=== PATIENT | female | born 1985 | race Caucasian/White ===

== ENCOUNTER 2020-01-02 02:58 | Inpatient (IN) | payer OTHER ==
[2020-01-02] MEDS: Lactated Ringers 1,000 ML IV SCH ×2 (03:14→04:24)
[2020-01-02] MEDS ORDERED: Sodium Chloride 0.9% 10 ML Syringe FLUSH PRN (03:20)
[2020-01-02] MEDS ORDERED: Nalbuphine 10 MG/1 ML Vial IVPUSH PRN (03:20)
[2020-01-02] MEDS ORDERED: Oxytocin/Lactated Ringers 10 UNIT/1,000 ML BAG IV SCH (03:30)
[2020-01-02] MEDS ORDERED: fentaNYL 100 MCG/2 ML SDV EPIDUR PRN (03:42)
[2020-01-02] MEDS ORDERED: diphenhydrAMINE 50 MG/ML SDV IVPUSH PRN (03:42)
[2020-01-02] MEDS ORDERED: Bupivacaine/fentaNYL/NS 100 ML Bag EPIDUR PRN (03:42)
[2020-01-02] MEDS ORDERED: ePHEDrine 50 MG/ML SDV IVPUSH PRN (03:42)
[2020-01-02] MEDS ORDERED: Ondansetron 4 MG/2 ML SDV ONE (04:33)
[2020-01-02] MEDS ORDERED: Ondansetron 4 MG/2 ML SDV IVPUSH ONE (04:38)
--- NOTE | 2020-01-02 05:58 | PCM.LDHP ---
L&D History of Present Illness - General Date of Service: 01/02/20 Admit Problem/Dx: Patient Status Order with Admit Dx/Problem 01/02/20 03:20 Patient Status [ADT] Routine Admission Diagnosis/Problem Admission Diagnosis/Problem Source of Information: Patient History Limitations: Reports: No Limitations - History of Present Illness Introduction:: 34-year-old -0-0-2 [place] 01/09/2020 presented to labor and delivery estimated gestational age of 39 weeks 0 days in active labor 7 cm dilated. Epidural was obtained. Patient progressed rapidly to deliver. The delivery record 820 06/2019 blood type O+ antibody screen negative on 06/18/2019 hemoglobin 14.0 hematocrit 41.0 platelets under 10 52,000. On 10/05/2019 hemoglobin 12.3 g. Are OB glucose screen 97. Antibody screen negative. Rubella immune. Serology nonreactive. Chlamydia and GC probe negative. GBS negative Location, : Reports: Abdomen, Lower back Quality: Reports: Ache, Pressure Severity: Moderate Pain Score: 8 Improves with: Reports: None Worsens with: Reports: None Associated Symptoms: Reports: N - Related Data Allergies/Adverse Reactions: Allergies Allergy/AdvReac Type Severity Reaction Status Date / Time Sulfa (Sulfonamide Allergy Hives Verified 01/02/20 03:50 Antibiotics) Home Medications: Home Meds Vits #93/Iron Fum/FA [ Formula Tablet] 1 tab PO DAILY 01/02/20 [History] Past Medical History [employer] History: Reports: Psychiatric History: Reports: Anxiety, Depression, PTSD Social & Family History - Tobacco Use Tobacco Use Status *Q: Former Tobacco User Used Tobacco, but Quit: Yes Month/Year Tobacco Last Used: 12/2017 - Caffeine Use Caffeine Use: Reports: None - Recreational Drug Use Recreational Drug Use: No H&P Review of Systems - Review of Systems: Review Of Systems: See Below General: Reports: No Symptoms HEENT: Reports: No Symptoms Pulmonary: Reports: No Symptoms Cardiovascular: Reports: No Symptoms Gastrointestinal: Reports: No Symptoms Genitourinary: Reports: No Symptoms Musculoskeletal: Reports: No Symptoms Skin: Reports: No Symptoms Psychiatric: Reports: No Symptoms Neurological: Reports: No Symptoms Hematologic/Lymphatic: Reports: No Symptoms Immunologic: Reports: No Symptoms L&D Exam - Exam Exam: See Below - Vital Signs Vital Signs: Last Vital Signs Temp 97.5 F 01/02/20 03:20 Pulse 94 01/02/20 03:20 Resp 20 01/02/20 03:20 BP 129/74 01/02/20 03:20 Pulse Ox 100 01/02/20 03:20 Weight: 187 lb 14.4 oz - OB Specific Fundal Height In cm: 39 Contraction Duration (sec): 60 Contraction Frequency (min): 4 Contraction Intensity: Moderate Movement: Active Heart Tones: Present Heart Tones per Min: 140 Heart Rate (FHR) Variability: Moderate (6-25 bmp) Presentation: Left Occiput Anterior (FREDI) - Lyle Score Lyle Score Cervix Position: Midposition Lyle Score Consistency: Soft Lyle Score Effacement: >80% Lyle Score Dilation: > 5 cm Lyle Score Infant's Station: -2 Lyle Score Total: 10 - Exam General: Alert, Oriented HEENT: Conjunctiva Clear, Mucosa Moist & [place] Neck: Supple, Trachea Midline Lungs: Clear to Auscultation, Normal Respiratory Effort Cardiovascular: Regular Rate, Regular Rhythm GI/Abdominal Exam: Normal Bowel Sounds, Soft, Non-Tender Genitourinary: Normal external exam Extremities: Normal Inspection, Non-Tender, No Pedal Edema, Normal Capillary Refill Skin: Warm, Dry, Intact Psychiatric: Alert, Normal Affect, Normal Mood - Patient Data Lab Results Last 24 hrs: Laboratory Results - last 24 hr 01/02/20 01/02/20 01/02/20 Range/Units 03:20 03:20 03:25 WBC 16.22 H (3.98-10.04) K/mm3 RBC 4.22 (3.98-5.22) M/mm3 Hgb 12.5 (11.2-15.7) gm/dl Hct 38.3 (34.1-44.9) % MCV 90.8 (79.4-94.8) fl MCH 29.6 (25.6-32.2) pg MCHC 32.6 (32.2-35.5) g/dl RDW Std Deviation 44.1 (36.4-46.3) fL Plt Count 287 (182-369) K/mm3 MPV 9.1 L (9.4-12.3) fl Neut % (Auto) 79.8 H (34.0-71.1) % Lymph % (Auto) 13.4 L (19.3-51.7) % [place] % (Auto) 5.2 (4.7-12.5) % Eos % (Auto) 1.1 (0.7-5.8) Baso % (Auto) 0.1 (0.1-1.2) % Neut # (Auto) 12.93 H (1.56-6.13) K/mm3 Lymph # (Auto) 2.18 (1.18-3.74) K/mm3 [place] # (Auto) 0.85 H (0.24-0.36) K/mm3 Eos # (Auto) 0.18 (0.04-0.36) K/mm3 Baso # (Auto) 0.01 (0.01-0.08) K/mm3 SARS-CoV-2 RNA (CRISS) Negative (NEGATIVE) Blood Type O POSITIVE Gel Antibody Screen Negative Result Diagrams: 01/02/20 03:20 - Problem List (1) 39 weeks gestation of SNOMED Code(s): 34058701 ICD Code: Z3A.39 - 39 WEEKS GESTATION OF Status: Acute Current Visit: Yes Problem List Initiated/Reviewed/Updated: No Orders Last 24hrs: Active Orders 24 hr Category Date Time Status Patient Status [ADT] Routine ADT 01/02/20 03:20 Active Activity as Tolerated [RC] PFP Care 01/02/20 03:20 Active Communication Order [RC] ASDIRECTED Care 01/02/20 03:20 Active Heart Tones [RC] ASDIRECTED Care 01/02/20 03:20 Active Non Stress Test [RC] PER UNIT ROUTINE Care 01/02/20 03:20 Active Notify Provider [RC] ASDIRECTED Care 01/02/20 03:42 Active Notify Provider [RC] PFP Care 01/02/20 03:20 Active Notify Provider [RC] PRN Care 01/02/20 03:20 Active Peripheral IV Care [RC] . DIRECTED Care 01/02/20 03:20 Active Vital Signs [RC] PER UNIT ROUTINE Care 01/02/20 03:20 Active Regular Diet [DIET] Diet 01/02/20 Breakfast Active CORONAVIRUS COVID-19 CRISS [MOLEC] Stat Lab 01/02/20 03:25 Received RAPID PLASMA REAGIN,RPR [CHEM] Routine Lab 01/02/20 03:20 Received Bupivacaine/fentaNYL/NS [fentaNYL/Bupivacaine/NS 2 MCG- Med 01/02/20 03:42 Active 0.125% 100 ML] 100 ml EPIDUR ASDIRECTED PRN Lactated Ringers [Ringers, Lactated] 1,000 ml Med 01/02/20 03:30 Active IV ASDIRECTED Nalbuphine [Nubain] Med 01/02/20 03:20 Active 10 mg IVPUSH Q2H PRN Oxytocin/Lactated Ringers [Pitocin in LR 10 Units/1,000 Med 01/02/20 03:30 Active ML] 10 unit in 1,000 ml IV .CONTINUOUS Sodium Chloride 0.9% [Saline Flush] Med 01/02/20 03:20 Active 10 ml FLUSH ASDIRECTED PRN diphenhydrAMINE [Benadryl] Med 01/02/20 03:42 Active 25 mg IVPUSH Q6H PRN ePHEDrine [ePHEDrine sulfate] Med 01/02/20 03:42 Active 5 mg IVPUSH ASDIRECTED PRN fentaNYL [Sublimaze] Med 01/02/20 03:42 Active 100 mcg EPIDUR Q3H PRN Electronic Heart Tones Ext w TOCO [WOMSER] Oth 01/02/20 03:20 Ordered Routine Electronic Heart Tones Internal [WOMSER] Per Unit Oth 01/02/20 03:20 Ordered Routine Peripheral IV Insertion Adult [OM.PC] Routine Oth 01/02/20 03:20 Ordered Resuscitation Status Routine Resus Stat 01/02/20 03:20 Ordered Medication Orders Diphenhydramine HCl (Benadryl) 25 mg IVPUSH Q6H PRN PRN Reason: pruritis Ephedrine Sulfate (Ephedrine Sulfate) 5 mg IVPUSH ASDIRECTED PRN PRN Reason: Hypotension Fentanyl (Sublimaze) 100 mcg EPIDUR Q3H PRN PRN Reason: Pain Last Admin: 01/02/20 04:29 Dose: 100 mcg Documented by: MONA Fentanyl/Bupivacaine HCl (Fentanyl/Bupivacaine/Ns 2 Mcg-0.125% 100 Ml) 100 ml EPIDUR ASDIRECTED PRN PRN Reason: Pain Last Admin: 01/02/20 04:30 Dose: 100 ml Documented by: MONA Oxytocin/Lactated Ringer's (Pitocin In Lr 10 Units/1,000 Ml) 10 unit in 1,000 mls @ 500 mls/hr IV .CONTINUOUS [place] Last Admin: 01/02/20 04:30 Dose: 500 mls/hr Documented by: MONA Lactated Ringer's (Ringers, Lactated) 1,000 mls @ 100 mls/hr IV ASDIRECTED [place] Last Admin: 01/02/20 04:24 Dose: 100 mls/hr Documented by: Infusion: 01/02/20 04:24 Dose: 100 mls/hr Documented by: Admin: 01/02/20 03:14 Dose: 100 mls/hr Documented by: MONA Nalbuphine HCl (Nubain) 10 mg IVPUSH Q2H PRN PRN Reason: Pain Sodium Chloride (Saline Flush) 10 ml FLUSH ASDIRECTED PRN PRN Reason: Keep Vein Open Assessment/Plan Comment:: Plan delivery if possible epidural plan delivery
--- NOTE | 2020-01-02 06:04 | PCM.DEL ---
L & D Note - General Info Date of Service: 01/02/20 Mother's Due Date: 01/09/20 - Delivery Note Labor: Spontaneous Delivery Outcome: Livebirth (Female live born at 0507 hrs. liveborn Apgars 7/7 weight 3700 g / 8 pounds 3 ounces. FREDI no nuchal cord) Delivery Method: Spontaneous Vaginal Delivery-Single Infant Delivery Mode: Spontaneous Presentation: Left Occiput Anterior (FREDI) Nuchal Cord: None Prep: Povidone-Iodine (Betadine Anesthesia Type: Epidural Amniotic Fluid Description: Clear Episiotomy Type: None Laceration: 2nd Degree Suture type: Other (Monocryl) Suture size: 3-0 Placenta: Intact, Spontaneous (0509 marginal cord insertion) Cord: 3 Vessels Estimated Blood Loss: 250 Resuscitation Needed: Yes [place]: Suctioned, Bulb Syringe, Cathether, Stimulated, Warmed, [place] Used, Warmer Used Provider: Jose Good (Dr Lee called) Score 1 min: 7 Score 5 min: 7 - General Info Date of Service: 01/02/20 Functional Status: Reports: Pain Controlled - Review of Systems General: Reports: No Symptoms HEENT: Reports: No Symptoms Pulmonary: Reports: No Symptoms Cardiovascular: Reports: No Symptoms Gastrointestinal: Reports: No Symptoms Genitourinary: Reports: No Symptoms Musculoskeletal: Reports: No Symptoms Skin: Reports: No Symptoms Neurological: Reports: No Symptoms Psychiatric: Reports: No Symptoms - Patient Data Vitals - Most Recent: Last Vital Signs Temp 97.5 F 01/02/20 03:20 Pulse 94 01/02/20 03:20 Resp 20 01/02/20 03:20 BP 129/74 01/02/20 03:20 Pulse Ox 100 01/02/20 03:20 Weight - Most Recent: 187 lb 14.4 oz Lab Results Last 24 Hours: Laboratory Results - last 24 hr 01/02/20 01/02/20 01/02/20 Range/Units 03:20 03:20 03:25 WBC 16.22 H (3.98-10.04) K/mm3 RBC 4.22 (3.98-5.22) M/mm3 Hgb 12.5 (11.2-15.7) gm/dl Hct 38.3 (34.1-44.9) % MCV 90.8 (79.4-94.8) fl MCH 29.6 (25.6-32.2) pg MCHC 32.6 (32.2-35.5) g/dl RDW Std Deviation 44.1 (36.4-46.3) fL Plt Count 287 (182-369) K/mm3 MPV 9.1 L (9.4-12.3) fl Neut % (Auto) 79.8 H (34.0-71.1) % Lymph % (Auto) 13.4 L (19.3-51.7) % [place] % (Auto) 5.2 (4.7-12.5) % Eos % (Auto) 1.1 (0.7-5.8) Baso % (Auto) 0.1 (0.1-1.2) % Neut # (Auto) 12.93 H (1.56-6.13) K/mm3 Lymph # (Auto) 2.18 (1.18-3.74) K/mm3 [place] # (Auto) 0.85 H (0.24-0.36) K/mm3 Eos # (Auto) 0.18 (0.04-0.36) K/mm3 Baso # (Auto) 0.01 (0.01-0.08) K/mm3 SARS-CoV-2 RNA (CRISS) Negative (NEGATIVE) Blood Type O POSITIVE Gel Antibody Screen Negative Med Orders - Current: Current Medications Diphenhydramine HCl (Benadryl) 25 mg IVPUSH Q6H PRN PRN Reason: pruritis Ephedrine Sulfate (Ephedrine Sulfate) 5 mg IVPUSH ASDIRECTED PRN PRN Reason: Hypotension Fentanyl (Sublimaze) 100 mcg EPIDUR Q3H PRN PRN Reason: Pain Last Admin: 01/02/20 04:29 Dose: 100 mcg Documented by: Fentanyl/Bupivacaine HCl (Fentanyl/Bupivacaine/Ns 2 Mcg-0.125% 100 Ml) 100 ml EPIDUR ASDIRECTED PRN PRN Reason: Pain Last Admin: 01/02/20 04:30 Dose: 100 ml Documented by: Oxytocin/Lactated Ringer's (Pitocin In Lr 10 Units/1,000 Ml) 10 unit in 1,000 mls @ 500 mls/hr IV .CONTINUOUS [place] Last Admin: 01/02/20 04:30 Dose: 500 mls/hr Documented by: Lactated Ringer's (Ringers, Lactated) 1,000 mls @ 100 mls/hr IV ASDIRECTED [place] Last Admin: 01/02/20 04:24 Dose: 100 mls/hr Documented by: Nalbuphine HCl (Nubain) 10 mg IVPUSH Q2H PRN PRN Reason: Pain Sodium Chloride (Saline Flush) 10 ml FLUSH ASDIRECTED PRN PRN Reason: Keep Vein Open Discontinued Medications Ondansetron HCl (Zofran) Confirm Administered Dose 4 mg .ROUTE .STK-MED ONE Stop: 01/02/20 04:34 Last Admin: 01/02/20 04:37 Dose: 4 mg Documented by: Ondansetron HCl (Zofran) 4 mg IVPUSH ONETIME ONE Stop: 01/02/20 04:39 - Exam General: Alert, Oriented HEENT: Pupils Equal, Mucous Membr. Moist/[place] Neck: Supple Lungs: Clear to Auscultation, Normal Respiratory Effort Cardiovascular: Regular Rate, Regular Rhythm (Female) Exam: Normal External Exam Extremities: Normal Inspection, Non-Tender, No Pedal Edema, Normal Capillary Refill, Pedal Edema Skin: Warm, Dry, Intact Psy/Mental Status: Alert, Normal Affect, Normal Mood - Problem List & Annotations (1) 39 weeks gestation of SNOMED Code(s): 70601121 Code(s): Z3A.39 - 39 WEEKS GESTATION OF Status: Acute Current Visit: Yes (2) Second degree perineal laceration during delivery SNOMED Code(s): 7635437 Code(s): O70.1 - SECOND DEGREE PERINEAL LACERATION DURING DELIVERY Status: Acute Current Visit: Yes - Problem List Review Problem List Initiated/Reviewed/Updated: No - My Orders Last 24 Hours: My Active Orders 01/02/20 03:20 Patient Status [ADT] Routine Activity as Tolerated [RC] PFP Communication Order [RC] ASDIRECTED Heart Tones [RC] ASDIRECTED Non Stress Test [RC] PER UNIT ROUTINE Notify Provider [RC] PFP Notify Provider [RC] PRN Peripheral IV Care [RC] . DIRECTED Vital Signs [RC] PER UNIT ROUTINE RAPID PLASMA REAGIN,RPR [CHEM] Routine Nalbuphine [Nubain] 10 mg IVPUSH Q2H PRN Sodium Chloride 0.9% [Saline Flush] 10 ml FLUSH ASDIRECTED PRN Electronic Heart Tones Ext w TOCO [WOMSER] Routine Electronic Heart Tones Internal [WOMSER] Per Unit Routine Peripheral IV Insertion Adult [OM.PC] Routine Resuscitation Status Routine 01/02/20 03:25 CORONAVIRUS COVID-19 CRISS [MOLEC] Stat 01/02/20 03:30 Lactated Ringers [Ringers, Lactated] 1,000 ml IV ASDIRECTED Oxytocin/Lactated Ringers [Pitocin in LR 10 Units/1,000 ML] 10 unit in 1,000 ml IV .CONTINUOUS 01/02/20 Breakfast Regular Diet [DIET] - Plan Plan:: Plan delivery if possible epidural plan delivery
[2020-01-02] MEDS ORDERED: Acetaminophen 325 MG Tab PO PRN (06:07)
[2020-01-02] MEDS ORDERED: Witch Hazel Medicated Pads 40/Jar TOP PRN (06:07)
[2020-01-02] MEDS ORDERED: Docusate Sodium 100 MG Cap PO PRN (06:07)
[2020-01-02] MEDS ORDERED: Benzocaine/Menthol 20%-0.5% Spray 56 GM Canister TOP PRN (06:07)
[2020-01-02] MEDS: Ibuprofen 600 MG Tab PO PRN ×3 (07:58→23:43)
[2020-01-03] MEDS ORDERED: Bupivacaine 0.25% 10 ML SDV ONE
--- NOTE | 2020-01-03 00:56 | PCM48HPAN ---
Post Anesthesia Note - EVALUATION WITHIN 48HRS OF ANESTHETIC Vital Signs in Normal Range: Yes Patient Participated in Evaluation: Yes Respiratory Function Stable: Yes Airway Patent: Yes Cardiovascular Function Stable: Yes Hydration Status Stable: Yes Pain Control Satisfactory: Yes Nausea and Vomiting Control Satisfactory: Yes Mental Status Recovered: Yes Vital Signs: Last Vital Signs Temp 36.6 C 01/02/20 19:50 Pulse 83 01/02/20 19:50 Resp 16 01/02/20 19:50 BP 138/97 H 01/02/20 19:50 Pulse Ox 100 01/02/20 19:50
--- NOTE | 2020-01-03 06:55 | PCM48HPAN ---
Post Anesthesia Note - EVALUATION WITHIN 48HRS OF ANESTHETIC Vital Signs in Normal Range: Yes Patient Participated in Evaluation: Yes Respiratory Function Stable: Yes Airway Patent: Yes Cardiovascular Function Stable: Yes Hydration Status Stable: Yes Pain Control Satisfactory: Yes Nausea and Vomiting Control Satisfactory: Yes Mental Status Recovered: Yes Vital Signs: Last Vital Signs Temp 37.3 C 01/03/20 04:35 Pulse 61 01/03/20 04:36 Resp 15 01/03/20 04:35 BP 105/73 01/03/20 04:36 Pulse Ox 98 01/03/20 04:36 - COMMENTS/OBSERVATIONS Free Text/Narrative:: no anesthesia complications noted
[2020-01-03] MEDS: Ibuprofen 600 MG Tab PO PRN (08:14)
--- NOTE | 2020-01-03 12:24 | PCM.DCSUM1 ---
Discharge Summary - Hospital Course Free Text/Narrative:: [facility] L/D Delivery Note Patient Name: INCOLE HEART Date of : 85 Patient Status: Inpatient Attending Provider: Jose Good Date: 01/02/20 05:59 Initialization Date: 01/02/20 05:59 L & D Note - General Info Date of Service: 01/02/20 Mother's Due Date: 01/09/20 - Delivery Note Labor: Spontaneous Delivery Outcome: Livebirth (Female live born at 0507 hrs. liveborn Apgars 7/7 weight 3700 g / 8 pounds 3 ounces. FREDI no nuchal cord) Delivery Method: Spontaneous Vaginal Delivery-Single Infant Delivery Mode: Spontaneous Presentation: Left Occiput Anterior (FREDI) Nuchal Cord: None Prep: Povidone-Iodine (Betadine Anesthesia Type: Epidural Amniotic Fluid Description: Clear Episiotomy Type: None Laceration: 2nd Degree Suture type: Other (Monocryl) Suture size: 3-0 Placenta: Intact, Spontaneous (0509 marginal cord insertion) Cord: 3 Vessels Estimated Blood Loss: 250 Resuscitation Needed: Yes : Suctioned, Bulb Syringe, Cathether, Stimulated, Warmed, [place] Used, Warmer Used Provider: Jose Good (Dr Lee called) Score 1 min: 7 Score 5 min: 7 - General Info Date of Service: 01/02/20 Functional Status: Reports: Pain Controlled - Review of Systems General: Reports: No Symptoms HEENT: Reports: No Symptoms Pulmonary: Reports: No Symptoms Cardiovascular: Reports: No Symptoms Gastrointestinal: Reports: No Symptoms Genitourinary: Reports: No Symptoms Musculoskeletal: Reports: No Symptoms Skin: Reports: No Symptoms Neurological: Reports: No Symptoms Psychiatric: Reports: No Symptoms - Patient Data Vitals - Most Recent: Last Vital Signs Temp 97.5 F 01/02/20 03:20 Pulse 94 01/02/20 03:20 Resp 20 01/02/20 03:20 BP 129/74 01/02/20 03:20 Pulse Ox 100 01/02/20 03:20 Weight - Most Recent: 187 lb 14.4 oz Lab Results Last 24 Hours: Laboratory Results - last 24 hr 01/02/20 01/02/20 01/02/20 Range/Units 03:20 03:20 03:25 WBC 16.22 H (3.98-10.04) K/mm3 RBC 4.22 (3.98-5.22) M/mm3 Hgb 12.5 (11.2-15.7) gm/dl Hct 38.3 (34.1-44.9) % MCV 90.8 (79.4-94.8) fl MCH 29.6 (25.6-32.2) pg MCHC 32.6 (32.2-35.5) g/dl RDW Std Deviation 44.1 (36.4-46.3) fL Plt Count 287 (182-369) K/mm3 MPV 9.1 L (9.4-12.3) fl Neut % (Auto) 79.8 H (34.0-71.1) % Lymph % (Auto) 13.4 L (19.3-51.7) % [place] % (Auto) 5.2 (4.7-12.5) % Eos % (Auto) 1.1 (0.7-5.8) Baso % (Auto) 0.1 (0.1-1.2) % Neut # (Auto) 12.93 H (1.56-6.13) K/mm3 Lymph # (Auto) 2.18 (1.18-3.74) K/mm3 [place] # (Auto) 0.85 H (0.24-0.36) K/mm3 Eos # (Auto) 0.18 (0.04-0.36) K/mm3 Baso # (Auto) 0.01 (0.01-0.08) K/mm3 SARS-CoV-2 RNA (CRISS) Negative (NEGATIVE) Blood Type O POSITIVE Gel Antibody Screen Negative Med Orders - Current: Current Medications Diphenhydramine HCl (Benadryl) 25 mg IVPUSH Q6H PRN PRN Reason: pruritis Ephedrine Sulfate (Ephedrine Sulfate) 5 mg IVPUSH ASDIRECTED PRN PRN Reason: Hypotension Fentanyl (Sublimaze) 100 mcg EPIDUR Q3H PRN PRN Reason: Pain Last Admin: 01/02/20 04:29 Dose: 100 mcg Documented by: Fentanyl/Bupivacaine HCl (Fentanyl/Bupivacaine/Ns 2 Mcg-0.125% 100 Ml) 100 ml EPIDUR ASDIRECTED PRN PRN Reason: Pain Last Admin: 01/02/20 04:30 Dose: 100 ml Documented by: Oxytocin/Lactated Ringer's (Pitocin In Lr 10 Units/1,000 Ml) 10 unit in 1,000 mls @ 500 mls/hr IV .CONTINUOUS [place] Last Admin: 01/02/20 04:30 Dose: 500 mls/hr Documented by: Lactated Ringer's (Ringers, Lactated) 1,000 mls @ 100 mls/hr IV ASDIRECTED [place] Last Admin: 01/02/20 04:24 Dose: 100 mls/hr Documented by: Nalbuphine HCl (Nubain) 10 mg IVPUSH Q2H PRN PRN Reason: Pain Sodium Chloride (Saline Flush) 10 ml FLUSH ASDIRECTED PRN PRN Reason: Keep Vein Open Discontinued Medications Ondansetron HCl (Zofran) Confirm Administered Dose 4 mg .ROUTE .STK-MED ONE Stop: 01/02/20 04:34 Last Admin: 01/02/20 04:37 Dose: 4 mg Documented by: Ondansetron HCl (Zofran) 4 mg IVPUSH ONETIME ONE Stop: 01/02/20 04:39 - Exam General: Alert, Oriented HEENT: Pupils Equal, Mucous Membr. Moist/[employer] Neck: Supple Lungs: Clear to Auscultation, Normal Respiratory Effort Cardiovascular: Regular Rate, Regular Rhythm (Female) Exam: Normal External Exam Extremities: Normal Inspection, Non-Tender, No Pedal Edema, Normal Capillary Refill, Pedal Edema Skin: Warm, Dry, Intact Psy/Mental Status: Alert, Normal Affect, Normal Mood - Problem List & Annotations (1) 39 weeks gestation of SNOMED Code(s): 55956835 Code(s): Z3A.39 - 39 WEEKS GESTATION OF Status: Acute Current Visit: Yes (2) Second degree perineal laceration during delivery SNOMED Code(s): 1544451 Code(s): O70.1 - SECOND DEGREE PERINEAL LACERATION DURING DELIVERY Status: Acute Current Visit: Yes - Problem List Review Problem List Initiated/Reviewed/Updated: No - My Orders Last 24 Hours: My Active Orders 01/02/20 03:20 Patient Status [ADT] Routine Activity as Tolerated [RC] PFP Communication Order [RC] ASDIRECTED Heart Tones [RC] ASDIRECTED Non Stress Test [RC] PER UNIT ROUTINE Notify Provider [RC] PFP Notify Provider [RC] PRN Peripheral IV Care [RC] . DIRECTED Vital Signs [RC] PER UNIT ROUTINE RAPID PLASMA REAGIN,RPR [CHEM] Routine Nalbuphine [Nubain] 10 mg IVPUSH Q2H PRN Sodium Chloride 0.9% [Saline Flush] 10 ml FLUSH ASDIRECTED PRN Electronic Heart Tones Ext w TOCO [WOMSER] Routine Electronic Heart Tones Internal [WOMSER] Per Unit Routine Peripheral IV Insertion Adult [OM.PC] Routine Resuscitation Status Routine 01/02/20 03:25 CORONAVIRUS COVID-19 CRISS [MOLEC] Stat 01/02/20 03:30 Lactated Ringers [Ringers, Lactated] 1,000 ml IV ASDIRECTED Oxytocin/Lactated Ringers [Pitocin in LR 10 Units/1,000 ML] 10 unit in 1,000 ml IV .CONTINUOUS 01/02/20 Breakfast Regular Diet [DIET] - Plan Plan:: Plan delivery if possible epidural plan delivery HPI Initial Comments: [facility] L/D Delivery Note Patient Name: NICOLE HEART Date of : 85 Patient Status: Inpatient Attending Provider: Jose Good Date: 01/02/20 05:59 Initialization Date: 01/02/20 05:59 L & D Note - General Info Date of Service: 01/02/20 Mother's Due Date: 01/09/20 - Delivery Note Labor: Spontaneous Delivery Outcome: Livebirth (Female live born at 0507 hrs. liveborn Apgars 7/7 weight 3700 g / 8 pounds 3 ounces. FREDI no nuchal cord) Infant Delivery Method: Spontaneous Vaginal Delivery-Single Infant Delivery Mode: Spontaneous Presentation: Left Occiput Anterior (FREDI) Nuchal Cord: None Prep: Povidone-Iodine (Betadine Anesthesia Type: Epidural Amniotic Fluid Description: Clear Episiotomy Type: None Laceration: 2nd Degree Suture type: Other (Monocryl) Suture size: 3-0 Placenta: Intact, Spontaneous (0509 marginal cord insertion) Cord: 3 Vessels Estimated Blood Loss: 250 Resuscitation Needed: Yes [place]: Suctioned, Bulb Syringe, Cathether, Stimulated, Warmed, [place] Used, Warmer Used Provider: Jose Good (Dr Lee called) Score 1 min: 7 Score 5 min: 7 - General Info Date of Service: 01/02/20 Functional Status: Reports: Pain Controlled - Review of Systems General: Reports: No Symptoms HEENT: Reports: No Symptoms Pulmonary: Reports: No Symptoms Cardiovascular: Reports: No Symptoms Gastrointestinal: Reports: No Symptoms Genitourinary: Reports: No Symptoms Musculoskeletal: Reports: No Symptoms Skin: Reports: No Symptoms Neurological: Reports: No Symptoms Psychiatric: Reports: No Symptoms - Patient Data Vitals - Most Recent: Last Vital Signs Temp 97.5 F 01/02/20 03:20 Pulse 94 01/02/20 03:20 Resp 20 01/02/20 03:20 BP 129/74 01/02/20 03:20 Pulse Ox 100 01/02/20 03:20 Weight - Most Recent: 187 lb 14.4 oz Lab Results Last 24 Hours: Laboratory Results - last 24 hr 01/02/20 01/02/20 01/02/20 Range/Units 03:20 03:20 03:25 WBC 16.22 H (3.98-10.04) K/mm3 RBC 4.22 (3.98-5.22) M/mm3 Hgb 12.5 (11.2-15.7) gm/dl Hct 38.3 (34.1-44.9) % MCV 90.8 (79.4-94.8) fl MCH 29.6 (25.6-32.2) pg MCHC 32.6 (32.2-35.5) g/dl RDW Std Deviation 44.1 (36.4-46.3) fL Plt Count 287 (182-369) K/mm3 MPV 9.1 L (9.4-12.3) fl Neut % (Auto) 79.8 H (34.0-71.1) % Lymph % (Auto) 13.4 L (19.3-51.7) % [place] % (Auto) 5.2 (4.7-12.5) % Eos % (Auto) 1.1 (0.7-5.8) Baso % (Auto) 0.1 (0.1-1.2) % Neut # (Auto) 12.93 H (1.56-6.13) K/mm3 Lymph # (Auto) 2.18 (1.18-3.74) K/mm3 [place] # (Auto) 0.85 H (0.24-0.36) K/mm3 Eos # (Auto) 0.18 (0.04-0.36) K/mm3 Baso # (Auto) 0.01 (0.01-0.08) K/mm3 SARS-CoV-2 RNA (CRISS) Negative (NEGATIVE) Blood Type O POSITIVE Gel Antibody Screen Negative Med Orders - Current: Current Medications Diphenhydramine HCl (Benadryl) 25 mg IVPUSH Q6H PRN PRN Reason: pruritis Ephedrine Sulfate (Ephedrine Sulfate) 5 mg IVPUSH ASDIRECTED PRN PRN Reason: Hypotension Fentanyl (Sublimaze) 100 mcg EPIDUR Q3H PRN PRN Reason: Pain Last Admin: 01/02/20 04:29 Dose: 100 mcg Documented by: Fentanyl/Bupivacaine HCl (Fentanyl/Bupivacaine/Ns 2 Mcg-0.125% 100 Ml) 100 ml EPIDUR ASDIRECTED PRN PRN Reason: Pain Last Admin: 01/02/20 04:30 Dose: 100 ml Documented by: Oxytocin/Lactated Ringer's (Pitocin In Lr 10 Units/1,000 Ml) 10 unit in 1,000 mls @ 500 mls/hr IV .CONTINUOUS [place] Last Admin: 01/02/20 04:30 Dose: 500 mls/hr Documented by: Lactated Ringer's (Ringers, Lactated) 1,000 mls @ 100 mls/hr IV ASDIRECTED [place] Last Admin: 01/02/20 04:24 Dose: 100 mls/hr Documented by: Nalbuphine HCl (Nubain) 10 mg IVPUSH Q2H PRN PRN Reason: Pain Sodium Chloride (Saline Flush) 10 ml FLUSH ASDIRECTED PRN PRN Reason: Keep Vein Open Discontinued Medications Ondansetron HCl (Zofran) Confirm Administered Dose 4 mg .ROUTE .STK-MED ONE Stop: 01/02/20 04:34 Last Admin: 01/02/20 04:37 Dose: 4 mg Documented by: Ondansetron HCl (Zofran) 4 mg IVPUSH ONETIME ONE Stop: 01/02/20 04:39 - Exam General: Alert, Oriented HEENT: Pupils Equal, Mucous Membr. Moist/[employer] Neck: Supple Lungs: Clear to Auscultation, Normal Respiratory Effort Cardiovascular: Regular Rate, Regular Rhythm (Female) Exam: Normal External Exam Extremities: Normal Inspection, Non-Tender, No Pedal Edema, Normal Capillary Refill, Pedal Edema Skin: Warm, Dry, Intact Psy/Mental Status: Alert, Normal Affect, Normal Mood - Problem List & Annotations (1) 39 weeks gestation of SNOMED Code(s): 77907064 Code(s): Z3A.39 - 39 WEEKS GESTATION OF Status: Acute Current Visit: Yes (2) Second degree perineal laceration during delivery SNOMED Code(s): 6450048 Code(s): O70.1 - SECOND DEGREE PERINEAL LACERATION DURING DELIVERY Status: Acute Current Visit: Yes - Problem List Review Problem List Initiated/Reviewed/Updated: No - My Orders Last 24 Hours: My Active Orders 01/02/20 03:20 Patient Status [ADT] Routine Activity as Tolerated [RC] PFP Communication Order [RC] ASDIRECTED Heart Tones [RC] ASDIRECTED Non Stress Test [RC] PER UNIT ROUTINE Notify Provider [RC] PFP Notify Provider [RC] PRN Peripheral IV Care [RC] . DIRECTED Vital Signs [RC] PER UNIT ROUTINE RAPID PLASMA REAGIN,RPR [CHEM] Routine Nalbuphine [Nubain] 10 mg IVPUSH Q2H PRN Sodium Chloride 0.9% [Saline Flush] 10 ml FLUSH ASDIRECTED PRN Electronic Heart Tones Ext w TOCO [WOMSER] Routine Electronic Heart Tones Internal [WOMSER] Per Unit Routine Peripheral IV Insertion Adult [OM.PC] Routine Resuscitation Status Routine 01/02/20 03:25 CORONAVIRUS COVID-19 CRISS [MOLEC] Stat 01/02/20 03:30 Lactated Ringers [Ringers, Lactated] 1,000 ml IV ASDIRECTED Oxytocin/Lactated Ringers [Pitocin in LR 10 Units/1,000 ML] 10 unit in 1,000 ml IV .CONTINUOUS 01/02/20 Breakfast Regular Diet [DIET] - Plan Plan:: Plan delivery if possible epidural plan delivery Brief History: [facility] . L/D Delivery Note. Patient Name: NICOLE HEARTedical Record Number: [id number]. Date of : 85Patient Status: Inpatient. Attending Provider: Jose Good Number: [id number]. Date: 01/02/20 05:59Initialization Date: 01/02/20 05:59. L & D Note. - General Info. Date of Service: 01/02/20. Mother's Due Date: 01/09/20. - Delivery Note. Labor: Spontaneous. Delivery Outcome: Livebirth (Female live born at 0507 hrs. liveborn Apgars 7/7 weight 3700 g / 8 pounds 3 ounces. FREDI no nuchal cord). Delivery Method: Spontaneous Vaginal Delivery-Single. Infant Delivery Mode: Spontaneous. Presentation: Left Occiput Anterior (FREDI). Nuchal Cord: None. Prep: Povidone-Iodine (Betadine. Anesthesia Type: Epidural. Amniotic Fluid Description: Clear. Episiotomy Type: None. Laceration: 2nd Degree. Suture type: Other (Monocryl). Suture size: 3- 0. Placenta: Intact, Spontaneous (0509 marginal cord insertion). Cord: 3 Vessels. Estimated Blood Loss: 250. Resuscitation Needed: Yes. : Suctioned, Bulb Syringe, Cathether, Stimulated, Warmed, [place] Used, Warmer Used. Provider: Jose Good (Dr Lee called). Score 1 min: 7. Score 5 min: 7. - General Info. Date of Service: 01/02/20. Functional Status: Reports: Pain Controlled. - Review of Systems. General: Reports: No Symptoms. HEENT: Reports: No Symptoms. Pulmonary: Reports: No Symptoms. Cardiovascular: Reports: No Symptoms. Gastrointestinal: Reports: No Symptoms. Genitourinary: Reports: No Symptoms. Musculoskeletal: Reports: No Symptoms. Skin: Reports: No Symptoms. Neurological: Reports: No Symptoms. Psychiatric: Reports: No Symptoms. - Patient Data. Vitals - Most Recent: Last Vital Signs. Temp 97.5 F 01/02/20 03:20. Pulse 94 01/02/20 03:20. Resp 20 01/02/20 03:20. BP 129/74 01/02/20 03:20. Pulse Ox 100 01/02/20 03:20. Weight - Most Recent: 187 lb 14.4 oz. Lab Results Last 24 Hours: Laboratory Results - last 24 hr. 01/01/2011/Range/Units. 03:2002:2002:25. WBC 16.22 H (3.98-10.04) K/mm3. RBC 4.22 (3.98-5.22) M/mm3. Hgb 12.5 (11.2- 15.7) gm/dl. Hct 38.3 (34.1-44.9) %. MCV 90.8 (79.4-94.8) fl. MCH 29.6 (25.6-32.2) pg. MCHC 32.6 (32.2-35.5) g/dl. RDW Std Deviation 44.1 (36.4- 46.3) fL. Plt Count 287 (182-369) K/mm3. MPV 9.1 L (9.4-12.3) fl. Neut % (Auto) 79.8 H (34.0-71.1) %. Lymph % (Auto) 13.4 L (19.3-51.7) %. [place] % (Auto) 5.2 (4.7-12.5) %. Eos % (Auto) 1.1 (0.7-5.8). Baso % (Auto) 0.1 (0.1- 1.2) %. Neut # (Auto) 12.93 H (1.56-6.13) K/mm3. Lymph # (Auto) 2.18 (1.18-3.74) K/mm3. [place] # (Auto) 0.85 H (0.24-0.36) K/mm3. Eos # (Auto) 0.18 (0.04-0.36) K/mm3. Baso # (Auto) 0.01 (0.01-0.08) K/mm3. SARS-CoV-2 RNA (CRISS) Negative (NEGATIVE). Blood Type O POSITIVE. Gel Antibody Screen Negative. Med Orders - Current: Current Medications. Diphenhydramine HCl (Benadryl) 25 mg IVPUSH Q6H PRN. PRN Reason: pruritis. Ephedrine Sulfate (Ephedrine Sulfate) 5 mg IVPUSH ASDIRECTED PRN. PRN Reason: Hypotension. Fentanyl (Sublimaze) 100 mcg EPIDUR Q3H PRN. PRN Reason: Pain. Last Admin: 01/02/20 04:29 Dose: 100 mcg. Documented by: Fentanyl/Bupivacaine HCl (F entanyl/Bupivacaine/Ns 2 Mcg-0.125% 100 Ml) 100 ml EPIDUR ASDIRECTED PRN. PRN Reason: Pain. Last Admin: 01/02/20 04:30 Dose: 100 ml. Documented by: Oxytocin/Lactated Ringer's (Pitocin In Lr 10 Units/1,000 Ml) 10 unit in 1,000 mls @ 500 mls/hr IV .CONTINUOUS [place]. Last Admin: 01/02/20 04:30 Dose: 500 mls/hr. Documented by: Lactated Ringer's (Ringers, Lactated) 1,000 mls @ 100 mls/hr IV ASDIRECTED [place]. Last Admin: 01/02/20 04:24 Dose: 100 mls/hr. Documented by: Nalbuphine HCl (Nubain) 10 mg IVPUSH Q2H PRN. PRN Reason: Pain. Sodium Chloride (Saline Flush) 10 ml FLUSH ASDIRECTED PRN. PRN Reason: Keep Vein Open. Discontinued Medications. Ondansetron HCl (Zofran) Confirm Administered Dose 4 mg .ROUTE .STK-MED ONE. Stop: 01/02/20 04:34. Last Admin: 01/02/20 04:37 Dose: 4 mg. Documented by: Ondansetron HCl (Zofran) 4 mg IVPUSH ONETIME ONE. Stop: 01/02/20 04:39. - Exam. General: Alert, Oriented. HEENT: Pupils Equal, Mucous Membr. Moist/[employer]. Neck: Supple. Lungs: Clear to Auscultation, Normal Respiratory Effort. Cardiovascular: Regular Rate, Regular Rhythm. (Female) Exam: Normal External Exam. Extremities: Normal Inspection, Non-Tender, No Pedal Edema, Normal Capillary Refill, Pedal Edema. Skin: Warm, Dry, Intact. Psy/Mental Status: Alert, Normal Affect, Normal Mood. - Problem List & Annotations. (1) 39 weeks gestation of . SNOMED Cod e(s): 08844832. Code(s): Z3A.39 - 39 WEEKS GESTATION OF Status: Acute Current Visit: Yes. (2) Second degree perineal laceration during delivery. SNOMED Code(s): 2853542. Code(s): O70.1 - SECOND DEGREE PERINEAL LACERATION DURING DELIVERY Status: Acute Current Visit: Yes. - Problem List Review. Problem List Initiated/Reviewed/Updated: No. - My Orders. Last 24 Hours: My Active Orders. 01/02/20 03:20. Patient Status [ADT] Routine. Activity as Tolerated [RC] PFP. Communication Order [RC] ASDIRECTED. Heart Tones [RC] ASDIRECTED. Non Stress Test [RC] PER UNIT ROUTINE. Notify Provider [RC] PFP. Notify Provider [RC] PRN. Peripheral IV Care [RC] . DIRECTED. Vital Signs [RC] PER UNIT ROUTINE. RAPID PLASMA REAGIN,RPR [CHEM] Routine. Nalbuphine [Nubain] 10 mg IVPUSH Q2H PRN. Sodium Chloride 0.9% [Saline Flush] 10 ml FLUSH ASDIRECTED PRN. Electronic Heart Tones Ext w TOCO [WOMSER] Routine. Electronic Heart Tones Internal [WOMSER] Per Unit Routine. Peripheral IV Insertion Adult [OM.PC] Routine. Resuscitation Status Routine. 01/02/20 03:25. CORONAVIRUS COVID-19 CRISS [MOLEC] Stat. 01/02/20 03:30. Lactated Ringers [Ringers, Lactated] 1,000 ml IV ASDIRECTED. Oxytocin/Lactated Ringers [Pitocin in LR 10 Units/1,000 ML] 10 unit in 1,000 ml IV .CONTINUOUS. 01/02/20 Breakfast. Regular Diet [DIET]. - Plan. Plan:: Plan delivery if possible epidural plan delivery Diagnosis: Stroke: No - Discharge Data Discharge Date: 01/03/20 Discharge Disposition: Home, Self-Care 01 Condition: Good - Referral to Home Health Primary Care Physician: Jaimie Beck MD - Discharge Diagnosis/Problem(s) (1) 39 weeks gestation of SNOMED Code(s): 68694787 ICD Code: Z3A.39 - 39 WEEKS GESTATION OF Status: Acute Current Visit: Yes (2) Second degree perineal laceration during delivery SNOMED Code(s): 8790253 ICD Code: O70.1 - SECOND DEGREE PERINEAL LACERATION DURING DELIVERY Status: Acute Current Visit: Yes - Patient Summary/Data Complications: none Consults: none Hospital Course: uneventful - Patient Instructions Diet: Usual Diet as Tolerated Driving: Do Not Drive (X2 days) Showering/Bathing: May Shower Notify Provider of: Fever, Increased Pain, Swelling and Redness, Drainage, Nausea and/or Vomiting - Discharge Plan *PRESCRIPTION DRUG MONITORING PROGRAM REVIEWED*: Not Applicable *COPY OF PRESCRIPTION DRUG MONITORING REPORT IN PATIENT SHAR: Not Applicable Home Medications: Home Meds Vits #93/Iron Fum/FA [ Formula Tablet] 1 tab PO DAILY 01/02/20 [History] Acetaminophen [Tylenol] 650 mg PO Q6H PRN tablet 01/03/20 [Rx] Benzocaine/Menthol [Dermoplast Pain Relief [place]] 1 spray TOP ASDIRECTED PRN canister 01/03/20 [Rx] Docusate Sodium [Colace] 100 mg PO BID PRN cap 01/03/20 [Rx] Ibuprofen [Motrin] 600 mg PO Q6H PRN tablet 01/03/20 [Rx] witch Sena [Tucks] 1 pad TOP ASDIRECTED PRN pad 01/03/20 [Rx] Referrals: Jaimie Beck MD [Primary Care Provider] - (Patient will call to make appointment with Dr. Beck) - Discharge Summary/Plan Comment DC Time >30 min.: No - Patient Data Vitals - Most Recent: Last Vital Signs Temp 98.2 F 01/03/20 07:59 Pulse 76 01/03/20 07:59 Resp 16 01/03/20 07:59 BP 124/58 L 01/03/20 07:59 Pulse Ox 96 01/03/20 07:59 Weight - Most Recent: 187 lb 14.4 oz I&O - Last 24 hours: Intake & Output 01/02/20 01/03/20 01/03/20 22:59 06:59 14:59 Intake Total 420 Balance 420 Lab Results - Last 24 hrs: Laboratory Results - last 24 hr 11/22/20 11/23/20 Range/Units 03:20 05:47 WBC 11.95 H (3.98-10.04) K/mm3 RBC 3.31 L (3.98-5.22) M/mm3 Hgb 9.5 L D (11.2-15.7) gm/dl Hct 30.7 L (34.1-44.9) % MCV 92.7 (79.4-94.8) fl MCH 28.7 (25.6-32.2) pg MCHC 30.9 L (32.2-35.5) g/dl RDW Std Deviation 44.8 (36.4-46.3) fL Plt Count 257 (182-369) K/mm3 MPV 9.7 (9.4-12.3) fl Neut % (Auto) 71.8 H (34.0-71.1) % Lymph % (Auto) 21.3 (19.3-51.7) % [place] % (Auto) 5.4 (4.7-12.5) % Eos % (Auto) 1.0 (0.7-5.8) Baso % (Auto) 0.2 (0.1-1.2) % Neut # (Auto) 8.59 H (1.56-6.13) K/mm3 Lymph # (Auto) 2.55 (1.18-3.74) K/mm3 [place] # (Auto) 0.64 H (0.24-0.36) K/mm3 Eos # (Auto) 0.12 (0.04-0.36) K/mm3 Baso # (Auto) 0.02 (0.01-0.08) K/mm3 RPR Non-reactive (NONREACTIVE) Med Orders - Current: Current Medications Acetaminophen (Tylenol) 650 mg PO Q4H PRN PRN Reason: mild pain or fever Benzocaine/Menthol (Dermoplast Pain Relief [place]) 0 gm TOP ASDIRECTED PRN PRN Reason: Perineal Comfort Measure Last Admin: 01/02/20 07:58 Dose: 1 applic Documented by: Docusate Sodium (Colace) 100 mg PO BID PRN PRN Reason: Constipation Ibuprofen (Motrin) 600 mg PO Q4H PRN PRN Reason: Mild pain or fever Last Admin: 01/03/20 08:14 Dose: 600 mg Documented by: Adithya Elizaldes) 1 pad TOP ASDIRECTED PRN PRN Reason: Perineal Comfort Measure Last Admin: 01/02/20 07:58 Dose: 1 applic Documented by: Discontinued Medications Bupivacaine HCl (Sensorcaine-Mpf 0.25%) 10 ml .ROUTE .STK-MED ONE Stop: 01/03/20 00:01 Diphenhydramine HCl (Benadryl) 25 mg IVPUSH Q6H PRN PRN Reason: pruritis Ephedrine Sulfate (Ephedrine Sulfate) 5 mg IVPUSH ASDIRECTED PRN PRN Reason: Hypotension Fentanyl (Sublimaze) 100 mcg EPIDUR Q3H PRN PRN Reason: Pain Last Admin: 01/02/20 04:29 Dose: 100 mcg Documented by: Fentanyl/Bupivacaine HCl (Fentanyl/Bupivacaine/Ns 2 Mcg-0.125% 100 Ml) 100 ml EPIDUR ASDIRECTED PRN PRN Reason: Pain Last Admin: 01/02/20 04:30 Dose: 100 ml Documented by: Oxytocin/Lactated Ringer's (Pitocin In Lr 10 Units/1,000 Ml) 10 unit in 1,000 mls @ 500 mls/hr IV .CONTINUOUS [place] Last Admin: 01/02/20 04:30 Dose: 500 mls/hr Documented by: Lactated Ringer's (Ringers, Lactated) 1,000 mls @ 100 mls/hr IV ASDIRECTED [place] Last Admin: 01/02/20 04:24 Dose: 100 mls/hr Documented by: Nalbuphine HCl (Nubain) 10 mg IVPUSH Q2H PRN PRN Reason: Pain Ondansetron HCl (Zofran) Confirm Administered Dose 4 mg .ROUTE .STK-MED ONE Stop: 01/02/20 04:34 Last Admin: 01/02/20 04:37 Dose: 4 mg Documented by: Ondansetron HCl (Zofran) 4 mg IVPUSH ONETIME ONE Stop: 01/02/20 04:39 Last Admin: 01/02/20 08:47 Dose: Not Given Documented by: Sodium Chloride (Saline Flush) 10 ml FLUSH ASDIRECTED PRN PRN Reason: Keep Vein Open
== END 2020-01-03 16:15 | disposition home or self-care (01) | DRG 807 ==
LOC: JD.OBCHECK 02:58 → JD.OB 03:03 → JD.OBCHECK 03:30 → JD.OB 03:31 → OBSVTOIN 05:07 → JD.OB 05:08
PROVIDERS: ADMIT Obstetrics & Gynecology; ATTEND Obstetrics & Gynecology
PROC: 10E0XZZ Delivery of Products of Conception, External Approach (ICD-10-PCS; principal; 2020-01-02)
PROC: 0KQM0ZZ Repair Perineum Muscle, Open Approach (ICD-10-PCS; 2020-01-02)
PROC: 3E0R3BZ Introduction of Anesthetic Agent into Spinal Canal, Percutaneous Approach (ICD-10-PCS; 2020-01-02)
PROC: 00HU33Z Insertion of Infusion Device into Spinal Canal, Percutaneous Approach (ICD-10-PCS; 2020-01-02)
DX: O70.1 Second degree perineal laceration during delivery (principal); Z37.0 Single live birth; Z3A.39 39 weeks gestation of pregnancy; Z20.828 Contact with and (suspected) exposure to other viral communicable diseases
CPT/HCPCS: 01967; 36415; 59025; 59409; 85025; 86592; 86850; 86900; 86901; A9270-GY; J2405; J2590; J3010; J3490; J7120; U0002

== ENCOUNTER 2020-07-10 15:09 | Emergency (ER) | payer OTHER ==
[2020-07-10] MEDS ORDERED: QUEtiapine 25 MG Tab PO ONE (16:06)
--- NOTE | 2020-07-10 16:52 | EDM.PDOCBH ---
ED HPI GENERAL MEDICAL PROBLEM - General Chief Complaint: Behavioral/Psych Stated Complaint: GINA X3 Time Seen by Provider: 07/10/20 15:28 Source of Information: Reports: Patient History Limitations: Reports: No Limitations - History of Present Illness INITIAL COMMENTS - FREE TEXT/NARRATIVE: The patient presents with insomnia. She says she has not slept for about 3 days. She is scarred to sleep. She is worried that the world might end. She also sees her father who was very mean to her. She at one time says she accidently killed him but later she says she did not. He was very mean to her and she has not talked to him in a couple years. She goes on about how she was in the [facility] and that people just leave their loved ones there. She also went on about something that happened in [place] where she fell. She has a and 3 children. She moved here from [place] a few years ago. She has no fever, chills, cough, chest pain, shortness of breath, abdominal pain, nausea or vomiting. The patient has no suicidal ideation. I talked with her and verified some things the patient was talking about. She has been admitted 3 times in the past for suicidal ideation. She had an episode like this last year and she took some benadryl and it helped her sleep. She has not had a problems since. He is not worried about her hurting herself or her family. Onset: Gradual Duration: Day(s): Severity: Moderate Improves with: Reports: None Worsens with: Reports: None Associated Symptoms: Reports: No Other Symptoms - Related Data Allergies Allergy/AdvReac Type Severity Reaction Status Date / Time Sulfa (Sulfonamide Allergy Hives Verified 07/10/20 15:31 Antibiotics) Home Meds: Home Meds QUEtiapine [SEROquel] 25 mg PO BID #60 tab 07/10/20 [Rx] Past Medical History Cardiovascular History: Reports: Hypertension [employer] History: Reports: Psychiatric History: Reports: Anxiety, Depression, Panic Attack, PTSD Social & Family History - Tobacco Use Tobacco Use Status *Q: Former Tobacco User Used Tobacco, but Quit: Yes Month/Year Tobacco Last Used: 02/2004 - Caffeine Use Caffeine Use: Reports: Coffee - Recreational Drug Use Recreational Drug Use: Yes Drug Use in Last 12 Months: Yes Recreational Drug Type: Reports: Marijuana/Hashish Recreational Drug Use Frequency: Daily ED ROS GENERAL - Review of Systems Review Of Systems: See Below Constitutional: Reports: No Symptoms HEENT: Reports: No Symptoms Respiratory: Reports: No Symptoms Cardiovascular: Reports: No Symptoms Endocrine: Reports: No Symptoms GI/Abdominal: Reports: No Symptoms : Reports: No Symptoms Musculoskeletal: Reports: No Symptoms ED EXAM, BEHAVIORAL HEALTH - Physical Exam Exam: See Below Exam Limited By: No Limitations General Appearance: Alert, No Apparent Distress Ears: Normal External Exam Nose: Normal Inspection Head: Atraumatic, Normocephalic Neck: Normal Inspection Respiratory/Chest: No Respiratory Distress, Lungs Clear, Normal Breath Sounds Cardiovascular: Regular Rate, Rhythm, No Edema, No Murmur GI/Abdominal: Soft, Non-Tender, No Organomegaly, No Mass Back Exam: Normal Inspection Extremities: Normal Inspection COURSE, BEHAVIORAL HEALTH COMP - Course Vital Signs: Last Vital Signs Temp 98.1 F 07/10/20 15:26 Pulse 107 H 07/10/20 15:26 Resp 14 07/10/20 15:26 BP 157/110 H 07/10/20 15:26 Pulse Ox 98 07/10/20 15:26 Orders, Labs, Meds: Active Orders 24 hr Category Date Time Status Cardiac Monitoring [RC] . DIRECTED Care 07/10/20 15:44 Active Laboratory Tests 07/10/20 07/10/20 07/10/20 Range/Units 16:04 16:04 16:07 WBC (3.98-10.04) K/mm3 RBC (3.98-5.22) M/mm3 Hgb (11.2-15.7) gm/dl Hct (34.1-44.9) % MCV (79.4-94.8) fl MCH (25.6-32.2) pg MCHC (32.2-35.5) g/dl RDW Std Deviation (36.4-46.3) fL Plt Count (182-369) K/mm3 MPV (9.4-12.3) fl Neut % (Auto) (34.0-71.1) % Lymph % (Auto) (19.3-51.7) % [place] % (Auto) (4.7-12.5) % Eos % (Auto) (0.7-5.8) Baso % (Auto) (0.1-1.2) % Neut # (Auto) (1.56-6.13) K/mm3 Lymph # (Auto) (1.18-3.74) K/mm3 [place] # (Auto) (0.24-0.36) K/mm3 Eos # (Auto) (0.04-0.36) K/mm3 Baso # (Auto) (0.01-0.08) K/mm3 Sodium (136-145) mEq/L Potassium (3.5-5.1) mEq/L Chloride (98-107) mEq/L Carbon Dioxide (21-32) mEq/L Anion Gap (5-15) BUN (7-18) mg/dL Creatinine (0.55-1.02) mg/dL Est Cr Clr Drug Dosing mL/min Estimated GFR (MDRD) (>60) mL/min BUN/Creatinine Ratio (14-18) Glucose (70-99) mg/dL Calcium (8.5-10.1) mg/dL Total Bilirubin (0.2-1.0) mg/dL AST (15-37) U/L ALT (14-59) U/L Alkaline Phosphatase (46-116) U/L Total Protein (6.4-8.2) g/dl Albumin (3.4-5.0) g/dl Globulin gm/dL Albumin/Globulin Ratio (1-2) TSH 3rd Generation (0.358-3.74) uIU/mL HCG, Qual (NEGATIVE) Urine Color Brittany H (Yellow) Urine Appearance Cloudy H (Clear) Urine pH 5.5 (5.0-8.0) Ur Specific [place] > or = 1.030 (1.005-1.030) Urine Protein 2+ H (Negative) Urine Glucose (UA) Negative (Negative) Urine Ketones 3+ H (Negative) Urine Occult Blood Negative (Negative) Urine Nitrite Negative (Negative) Urine Bilirubin 2+ H (Negative) Urine Urobilinogen 0.2 (0.2-1.0) Ur Leukocyte Esterase Negative (Negative) Urine RBC 0-5 (0-5) /hpf Urine WBC 5-10 H (0-5) /hpf Ur Epithelial Cells 5-10 H (0-5) /hpf Urine Bacteria Moderate H (FEW) /hpf Urine Mucus Many H (FEW) /hpf Urine Opiates Screen Negative (NHGLTJ=961) Ur Buprenorphine Scrn Negative (CUTOFF=10) Ur Oxycodone Screen Negative (PZK5JX=286) Urine Methadone Screen Negative (RVBLAB=643) Ur Propoxyphene Screen Negative (UOTCJA=718) Ur Barbiturates Screen Negative (GFVDKD=006) Ur Tricyclics Screen Negative (SJNYIM=413) Ur Phencyclidine Scrn Negative (CUTOFF=25) Ur Amphetamine Screen Negative (WKYVZA=098) U Methamphetamines Scrn Negative (HTABGD=868) U Benzodiazepines Scrn Negative (CMOTOA=911) U Cocaine Metab Screen Negative (UOJCQO=887) U Marijuana (THC) Screen Presumptive positive H (CUTOFF=50) Ethyl Alcohol (0.00) gm% SARS-CoV-2 RNA (CRISS) Negative (NEGATIVE) 07/10/20 07/10/20 07/10/20 Range/Units 16:08 16:08 16:08 WBC 7.51 (3.98-10.04) K/mm3 RBC 4.96 (3.98-5.22) M/mm3 Hgb 14.9 D (11.2-15.7) gm/dl Hct 45.1 H (34.1-44.9) % MCV 90.9 (79.4-94.8) fl MCH 30.0 (25.6-32.2) pg MCHC 33.0 (32.2-35.5) g/dl RDW Std Deviation 44.3 (36.4-46.3) fL Plt Count 284 (182-369) K/mm3 MPV 10.0 (9.4-12.3) fl Neut % (Auto) 67.1 (34.0-71.1) % Lymph % (Auto) 25.2 (19.3-51.7) % [place] % (Auto) 6.1 (4.7-12.5) % Eos % (Auto) 1.2 (0.7-5.8) Baso % (Auto) 0.3 (0.1-1.2) % Neut # (Auto) 5.04 (1.56-6.13) K/mm3 Lymph # (Auto) 1.89 (1.18-3.74) K/mm3 [place] # (Auto) 0.46 H (0.24-0.36) K/mm3 Eos # (Auto) 0.09 (0.04-0.36) K/mm3 Baso # (Auto) 0.02 (0.01-0.08) K/mm3 Sodium 136 (136-145) mEq/L Potassium 4.3 (3.5-5.1) mEq/L Chloride 100 (98-107) mEq/L Carbon Dioxide 22 (21-32) mEq/L Anion Gap 18.3 H (5-15) BUN 13 (7-18) mg/dL Creatinine 1.0 (0.55-1.02) mg/dL Est Cr Clr Drug Dosing 70.66 mL/min Estimated GFR (MDRD) > 60 (>60) mL/min BUN/Creatinine Ratio 13.0 L (14-18) Glucose 107 H (70-99) mg/dL Calcium 9.6 (8.5-10.1) mg/dL Total Bilirubin 1.5 H (0.2-1.0) mg/dL AST 18 (15-37) U/L ALT 21 (14-59) U/L Alkaline Phosphatase 58 (46-116) U/L Total Protein 8.8 H (6.4-8.2) g/dl Albumin 5.1 H (3.4-5.0) g/dl Globulin 3.7 gm/dL Albumin/Globulin Ratio 1.4 (1-2) TSH 3rd Generation 2.335 (0.358-3.74) uIU/mL HCG, Qual Negative (NEGATIVE) Urine Color (Yellow) Urine Appearance (Clear) Urine pH (5.0-8.0) Ur Specific [place] (1.005-1.030) Urine Protein (Negative) Urine Glucose (UA) (Negative) Urine Ketones (Negative) Urine Occult Blood (Negative) Urine Nitrite (Negative) Urine Bilirubin (Negative) Urine Urobilinogen (0.2-1.0) Ur Leukocyte Esterase (Negative) Urine RBC (0-5) /hpf Urine WBC (0-5) /hpf Ur Epithelial Cells (0-5) /hpf Urine Bacteria (FEW) /hpf Urine Mucus (FEW) /hpf Urine Opiates Screen (GVSFJI=814) Ur Buprenorphine Scrn (CUTOFF=10) Ur Oxycodone Screen (WKB5TY=187) Urine Methadone Screen (GYJEAX=929) Ur Propoxyphene Screen (CGXRHK=579) Ur Barbiturates Screen (NOOTSF=029) Ur Tricyclics Screen (HFSVCH=613) Ur Phencyclidine Scrn (CUTOFF=25) Ur Amphetamine Screen (KXHXCQ=347) U Methamphetamines Scrn (PTZROQ=405) U Benzodiazepines Scrn (PWWUEX=563) U Cocaine Metab Screen (RJARVQ=524) U Marijuana (THC) Screen (CUTOFF=50) Ethyl Alcohol 0.00 (0.00) gm% SARS-CoV-2 RNA (CRISS) (NEGATIVE) Medications Discontinued Medications Generic Name Dose Route Start Last Admin Trade Name [place] PRN Reason Stop Dose Admin Quetiapine Fumarate 50 mg 07/10/20 16:06 07/10/20 16:12 Quetiapine 25 Mg Tab PO 07/10/20 16:07 50 mg ONETIME ONE Administration Re-Assessment/Re-Exam: I ordered some labs and seroquel. Her CBC looks good. Her anion gap is elevated at 18.3. Her total bili is elevated at 1.5. Her albumin is elevated at 5.1. Her TSH is normal. Her HCG is negative. Her UA shows no UTI. Her UDS is positive for marijuana. She is on medical marijuana for anxiety. Her ETOH is 0. She is COVID 19 negative. She is sleeping now. Her will go home and feed his children and come back to get her. Departure - Departure Time of Disposition: 19:10 Disposition: Home, Self-Care 01 Condition: Good Clinical Impression: Insomnia Qualifiers: Insomnia type: unspecified Qualified Code(s): G47.00 - Insomnia, unspecified Psychosis Qualifiers: Psychosis type: other Qualified Code(s): F28 - Other psychotic disorder not due to a substance or known physiological condition - Discharge Information *PRESCRIPTION DRUG MONITORING PROGRAM REVIEWED*: Not Applicable *COPY OF PRESCRIPTION DRUG MONITORING REPORT IN PATIENT SHAR: Not Applicable Prescriptions: QUEtiapine [SEROquel] 25 mg PO BID #60 tab Referrals: PCP,None [Primary Care Provider] - Salvador Mariee MD [Physician] - 1 Week Forms: ED Department Discharge Additional Instructions: Take the seroquel 1 pill 2 times per day for 3 days, then 2 pills 2 times per day for 3 days and then 3 pills 2 times per day. If you need more help going to sleep, try some benadryl 50mg. Follow up with Dr Mariee. He is a psychiatrist at our clinic. Please return if you are worse. Sepsis Event Note (ED) - Evaluation Sepsis Screening Result: No Definite Risk - Focused Exam Vital Signs: Vital Signs Temp Pulse Resp BP Pulse Ox 07/10/20 15:26 98.1 F 107 H 14 157/110 H 98 - My Orders Last 24 Hours: My Active Orders 07/10/20 15:44 Cardiac Monitoring [RC] . DIRECTED - Assessment/Plan Last 24 Hours: My Active Orders 07/10/20 15:44 Cardiac Monitoring [RC] . DIRECTED
== END 2020-07-10 19:35 | disposition home or self-care (01) ==
LOC: JD.ED 15:09
DX: G47.00 Insomnia, unspecified (principal); F28 Other psychotic disorder not due to a substance or known physiological condition; I10 Essential (primary) hypertension; Z88.2 Allergy status to sulfonamides; Z87.891 Personal history of nicotine dependence; Z20.822 Contact with and (suspected) exposure to COVID-19
CPT/HCPCS: 36415; 80053; 80306; 80307; 81001; 84443; 84703; 85025; 87635; 99283; A9270; 99284; U0002